=== PATIENT | female | born 2005 | race Caucasian/White ===

== ENCOUNTER 2024-02-22 11:51 | Emergency (ER) | payer SELFPAY ==
[~2024-02-22] VITALS: Ht 156.2 cm; Wt 56.5 kg
[2024-02-22 12:05] VITALS: BP 104/60; PULSE 78; RESP 16; TEMP 98; O2SAT 100
[2024-02-22 12:30] VITALS: O2SAT 100
[2024-02-22] MEDS ORDERED: NAPR-1704 PO (13:17)
== END 2024-02-22 13:31 | disposition home or self-care (01) ==
LOC: MED 11:51
DX: R07.89 Other chest pain (principal); Z79.899 Other long term (current) drug therapy
CPT/HCPCS: 93005; 99283